=== PATIENT | female | born 1975 | race Caucasian/White ===

== ENCOUNTER 2019-07-30 15:09 | Emergency (ER) | payer BC ==
[2019-07-30 16:07] LABS: Absolute Lymphocytes (CBC) 1.2 K/uL (0.7-4.9); Basophils % 2.5 % (0-1.3); Hematocrit 39.7 % (36.0-45.0); Lymphocytes % 20.5 % (15.3-44.8); MPV 8.8 fL (7.6-11.3); RBC Red Blood Cell Count 4.45 M/uL (3.86-4.86)
[2019-07-30 16:13] LABS: BUN Blood Urea Nitrogen 13 mg/dL (7-18); Bicarbonate 30 mmol/L (21-32); Glucose Level 91 mg/dL (74-106); Potassium 3.8 mmol/L (3.5-5.1); Sodium Level 140 mmol/L (136-145)
--- NOTE | 2019-07-30 16:22 | RAD REPORT ---
EXAM DESCRIPTION: CT - Stone Protocol - 07/30/2019 4:12 pm CLINICAL HISTORY: lower abd pain, hematuria, dysuria COMPARISON: CT ABD PELVIS W CONTRAST dated 05/21/2011 TECHNIQUE: Axial 3 mm thick images were obtained without oral or IV contrast. The [id number] span s the entirety of the system including uppermost abdomen and lung bases. All CT scans are performed using dose optimization technique as appropriate and may include automated exposure control or mA/KV adjustment according to patient size. FINDINGS: No hydronephrosis is present and no obstructing ureteral calculi. No suspicious renal mass es. Isodense masses and pyelonephritis are not excluded on a stone protocol CT scan. No significant a drenal finding. No bladder wall thickening or edema evident. No uterine abnormality seen. Ovaries devorah ear within normal limits but are difficult to clearly distinguished from adjacent non-opacified bowel . The primary ovarian process is not suspected. Imaged portions of the liver, spleen and pancreas show no suspicious findings on non-contrast imaging . Gallbladder is contracted. No biliary tree dilatation. No suspicious bowel findings. Moderate stool volume present throughout the colon. No appendicitis. No hernia, mass or bulky lymphadenopathy noted. No free air or pneumatosis. Physiologic quantity of f ree fluid seen in the cul de sac. No significant bony abnormality. IMPRESSION: Noncontrast CT abdomen and pelvis showing no emergent finding. Isodense masses and pyelonephritis are not excluded on stone protocol technique. Moderate stool volume fills the colon. No appendicitis or acute GI finding.
[2019-07-30 16:23] LABS: Urine Blood 1+ (NEG); Urine Glucose NEGATIVE (NEG); Urine Protein NEGATIVE (NEG); Urine Specific Gravity 1.015 (1.005-1.030); Urine pH 6.5 (5.0-7.0)
--- NOTE | 2019-07-30 16:47 | EDPHYS ---
Physician Documentation [facility] Name: Sanna Melendez Age: 43 yrs Sex: Female : 1975 Arrival Date: 07/30/2019 Time: 15:12 Bed 17 Private MD: Fawn Levine ED Physician Mario Bose HPI: 07/29 16:22 This 43 yrs old Female presents to ER via Ambulatory with complaints of rn Urinary Problem - blood. 16:22 The patient presents with urinary symptoms, hematuria. The patient presents with rn urinary symptoms, dysuria. Onset: The symptoms/episode began/occurred yesterday. Modifying factors: The symptoms are alleviated by nothing, the symptoms are aggravated by urinating. Severity of symptoms: At their worst the symptoms were mild, in the emergency department the symptoms are unchanged. The patient has not experienced similar symptoms in the past. The patient has been recently seen by a physician:. Recently seen by pcp, thought had UTI, still taking cipro, no fever, + hematuria and dysuria. Urine tested by pcp and told her no UTI. Had KUB here yesterday but does not know results. No trauma. No vaginal symptoms. . 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 - Social history:: Smoking status: Patient denies any tobacco usage or history of. - Family history:: not pertinent. - Hospitalizations: : No recent hospitalization is reported. ROS: 16:22 Constitutional: Negative for fever, chills, and weight loss, Cardiovascular: Negative rn for chest pain, palpitations, and edema, Respiratory: Negative for shortness of breath, cough, wheezing, and pleuritic chest pain, Abdomen/GI: Negative for abdominal pain, nausea, vomiting, diarrhea, and constipation, Back: Negative for injury and pain, : + hematuria and dysuria MS/Extremity: Negative for injury and deformity, Skin: Negative for injury, rash, and discoloration, Neuro: Negative for headache, weakness, numbness, tingling, and seizure. Exam: 16:22 Constitutional: This is a well developed, well nourished patient who is awake, alert, rn and in no acute distress. Cardiovascular: Regular rate and rhythm. No pulse deficits. Respiratory: Speaking full sentences. No increased work of breathing, no retractions or nasal flaring. Abdomen/GI: soft, non-tender Back: No spinal tenderness. No costovertebral tenderness. Full range of motion. Skin: Warm, dry MS/ Extremity: Pulses equal, no cyanosis. Neurovascular intact. Full, normal range of motion. Equal circumference. Neuro: Awake and alert, GCS 15, Motor strength 5/5 in all extremities. Sensory grossly intact. Cerebellar exam normal. Normal gait. Vital Signs: 15:23 BP 113 / 73; Pulse 83; Resp 16 S; Temp 97.4(TE); Pulse Ox 100% on R/A; Weight 56.7 kg ca1 (R); Height 5 ft. 6 in. (167.64 cm) (R); Pain 5/10; 15:23 Body Mass Index 20.18 (56.70 kg, 167.64 cm) ca1 MDM: 15:29 Patient medically screened. rn 16:44 Differential diagnosis: kidney stone, malignancy, postcoital bleeding, urinary tract rn infection, STI. Data reviewed: vital signs, nurses notes, lab test result(s), radiologic studies, CT scan, and as a result, I will discharge patient. Counseling: I had a detailed discussion with the patient and/or guardian regarding: the historical points, exam findings, and any diagnostic results supporting the discharge/admit diagnosis, lab results, radiology results, the need for outpatient follow up, to return to the emergency department if symptoms worsen or persist or if there are any questions or concerns that arise at home. Special discussion: I discussed with the patient/guardian in detail that at this point there is no indication for admission to the hospital. It is understood, however, that if the symptoms persist or worsen the patient needs to return immediately for re-evaluation. Based on the history and exam findings, there is no indication for further emergent testing or inpatient evaluation. I discussed with the patient/guardian the need to see the urologist for further evaluation of the symptoms. ED course: Normal H/H, UA neg for UTI, afebrile, neg ct stone. Pt states urine culture was negative from PCP, so unlikely UTI. Will dc home with urology f/u for scope and further care. Patient does not feel this is from STI. . 07/29 15:14 Order name: Urine Culture [facility] 07/29 15:14 Order name: Urine Microscopic Only; Complete Time: 07:50 [facility] 07/29 15:36 Order name: CBC with Diff; Complete Time: 16:26 rn 07/29 15:36 Order name: Basic Metabolic Panel; Complete Time: 16:26 rn 07/29 16:01 Order name: Urine Dipstick--Ancillary (enter results); Complete Time: 16: 07/29 16:01 Order name: Urine --Ancillary (enter results); Complete Time: 16: 07/29 15:14 Order name: Urine Test (obtain specimen); Complete Time: 16: [facility] 07/29 15:14 Order name: Urine Dipstick-Ancillary (obtain specimen); Complete Time: 16: [facility] 07/29 15:36 Order name: CT Stone Protocol; Complete Time: 16: rn 07/29 15:36 Order name: IV Start; Complete Time: 16: rn Administered Medications: No medications were administered Disposition: 07/30/19 16:47 Discharged to Home. Impression: Hematuria, unspecified. - Condition is Stable. - Discharge Instructions: Hematuria, Adult. - Medication Reconciliation Form, Thank You Letter, Antibiotic Education, Prescription Opioid Use form. - Follow up: Natacha Dan MD; When: As needed; Reason: Recheck today's complaints, Re-evaluation by your physician. - Problem is new. - Symptoms have improved. Signatures: Dispatcher [employer] EDAR Danya Montero, COMPLIANCE REVIEW OFFICER-C COMPLIANCE REVIEW OFFICER-Csnw Mario Bose MD MD rn Calderon, Audri, RN RN aa5 Manju Sanchez RN RN ca1 Corrections: (The following items were deleted from the chart) 17:26 16:47 07/30/2019 16:47 Discharged to Home. Impression: Hematuria, unspecified. aa5 Condition is Stable. Forms are Medication Reconciliation Form, Thank You Letter, Antibiotic Education, Prescription Opioid Use. Follow up: Natacha Dan; When: As needed; Reason: Recheck today's complaints, Re-evaluation by your physician. Problem is new. Symptoms have improved. rn
--- NOTE | 2019-07-30 16:47 | ER ---
Nurse's Notes [facility] Name: Sanna Melendez Age: 43 yrs Sex: Female : 1975 Arrival Date: 07/30/2019 Time: 15:12 Bed 17 Private MD: Fawn Levine Diagnosis: Hematuria, unspecified Presentation: 07/29 15:23 Chief complaint: Patient states: Went to PCP on Thursday and was tested for UTI, ca1 prescribed Cipro 500 mg. Yesterday, I called my PCP and they said I don't have UTI. I had an abdominal Xray here, yesterday but I don't have results yet". Reports burning with urination and blood in urine. Coronavirus screen: Proceed with normal triage. Patient denies a cough. Patient denies shortness of breath or difficulty breathing. Patient denies measured and/or subjective temperature greater than 100.4F prior to today's visit. Patient denies travel on a cruise ship or to a country the [facility] currently lists as an affected area. Patient denies contact with known and/or suspected case of COVID-19. Ebola Screen: Patient negative for fever greater than or equal to 101.5 degrees Fahrenheit, and additional compatible Ebola Virus Disease symptoms Patient denies exposure to infectious person. Patient denies travel to an Ebola-affected area in the 21 days before illness onset. No symptoms or risks identified at this time. Initial Sepsis Screen: Does the patient meet any 2 criteria? No. Patient's initial sepsis screen is negative. Does the patient have a suspected source of infection? No. Patient's initial sepsis screen is negative. Risk Assessment: Do you want to hurt yourself or someone else? Patient reports no desire to harm self or others. Onset of symptoms was July 30, 2019. 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 - Social history:: Smoking status: Patient denies any tobacco usage or history of. - Family history:: not pertinent. - Hospitalizations: : No recent hospitalization is reported. Screenin:03 Abuse screen: Denies threats or abuse. Nutritional screening: No deficits noted. aa5 Tuberculosis screening: No symptoms or risk factors identified. Fall Risk None identified. Assessment: 15:40 General: Appears comfortable, Behavior is calm, cooperative. Pain: Denies pain. Neuro: aa5 Level of Consciousness is awake, alert, obeys commands, Oriented to person, place, time, situation. Cardiovascular: Heart tones S1 S2 present Patient's skin is warm and dry. Rhythm is regular. Respiratory: Airway is patent Respiratory effort is even, unlabored, Respiratory pattern is regular, symmetrical. GI: Abdomen is flat, non-distended, Bowel sounds present X 4 quads. Abd is soft and non tender X 4 quads. Patient currently denies nausea, vomiting. : Reports burning with urination, and hematuria today. EENT: No signs and/or symptoms were reported regarding the EENT system. Derm: Skin is pink, warm \\T\\ dry. Musculoskeletal: Range of motion: intact in all extremities. 16:20 Reassessment: Patient is alert, oriented x 3, equal unlabored respirations, skin aa5 warm/dry/pink. Pt back from CT scan. 17:24 Reassessment: Patient is alert, oriented x 3, equal unlabored respirations, skin aa5 warm/dry/pink. 17:24 Reassessment: Patient is alert, oriented x 3, equal unlabored respirations, skin aa5 warm/dry/pink. Urine culture sent to lab . Vital Signs: 15:23 BP 113 / 73; Pulse 83; Resp 16 S; Temp 97.4(TE); Pulse Ox 100% on R/A; Weight 56.7 kg ca1 (R); Height 5 ft. 6 in. (167.64 cm) (R); Pain 5/10; 15:23 Body Mass Index 20.18 (56.70 kg, 167.64 cm) ca1 ED Course: 15:12 Patient arrived in ED. am2 15:13 Fawn Levine is Private Physician. am2 15:27 Triage completed. ca1 15:28 Arm band placed on right wrist. ca1 15:29 Mario Bose MD is Attending Physician. rn 15:33 Hoffman, Charissa, RN is Primary Nurse. aa5 15:40 Patient has correct armband on for positive identification. Bed in low position. Call aa5 light in reach. Side rails up X2. 15:50 Initial lab(s) drawn, by me, sent to lab. Inserted saline lock: 20 gauge in right aa5 antecubital area, using aseptic technique. Blood collected. 15:50 Urine collected: clean catch specimen, clear. aa5 16:12 CT Stone Protocol In Process Unspecified. EDMS 16:12 CT completed. Patient tolerated procedure well. Patient moved back from CT. mw3 16:46 Natacha Dan MD is Referral Physician. rn 17:24 No provider procedures requiring assistance completed. IV discontinued, intact, aa5 bleeding controlled, No redness/swelling at site. Pressure dressing applied. Administered Medications: No medications were administered Outcome: 16:47 Discharge ordered by MD. rn 17:24 Discharged to home ambulatory. aa5 17:24 Condition: stable 17:24 Discharge instructions given to patient, Instructed on discharge instructions, follow up and referral plans. Demonstrated understanding of instructions, follow-up care. 17:26 Patient left the ED. aa5 Signatures: Dispatcher [employer] EDMS Mario Bose MD MD rn Calderon, Audri, RN RN aa5 Jahaira Nolan am2 Jyoti Nice mw3 Manju Sanchez RN RN ca1 Corrections: (The following items were deleted from the chart) 17:17 15:50 Patient has correct armband on for positive identification. Bed in low position. aa5 Call light in reach. Side rails up X2. aa5 19:27 17:24 Reassessment: Patient is alert, oriented x 3, equal unlabored respirations, skin aa5 warm/dry/pink. Urine micro and culture sent to lab . aa5
[2019-07-30 17:33] VITALS: BP 113/73; TEMP 97.4; O2SAT 100
[2019-07-30 18:47] LABS: Urine Bacteria <20 /HPF (<20); Urine Culture Reflex Order REFLEXED; Urine RBC <5 /HPF (NONE SEEN)
== END 2019-07-30 17:26 | disposition home or self-care (01) ==
LOC: ER 15:09
DX: R31.9 Hematuria, unspecified (principal); F90.9 Attention-deficit hyperactivity disorder, unspecified type
CPT/HCPCS: 36415; 74176; 76377; 80048; 81003; 81015; 81025; 85025; 87086; 87088; 99284